=== PATIENT | female | born 1980 | race Hispanic/Latino ===

== ENCOUNTER 2016-10-10 17:31 | Emergency (ER) | payer OTHER ==
[2016-10-10 17:41] VITALS: BP 135/81; PULSE 72; RESP 19; TEMP 98.1; O2SAT 100
--- NOTE | 2016-10-10 18:29 | ED PDOC ---
Lower Extremity Pain/Injury Time Seen by Provider: 10/10/16 17:51 Chief Complaint (Nursing): Lower Extremity Problem/Injury Chief Complaint (Provider): Bilat LE swelling History Per: Patient History/Exam Limitations: no limitations Onset/Duration Of Symptoms: Days (1) Current Symptoms Are (Timing): Still Present Severity: Moderate Additional Complaint(s): Jayla Devi is a 36 y/o female presenting to the ER on 10/10/2016 with bilateral leg swelling x1 day. Patient reports swelling began after returning from her 17 hour flight from [facility]. She states she tried using Ibuprofen as well as massaging techniques but experienced no resolution of symptoms. Patient additionally felt pain in her calves, which resolved on its own two hours prior to arrival. Clinically, patient denies any pain or swelling, but her concerns prompted a visit. Of note, patient says she was experiencing chest pain prior to her trip to [facility] more than a week ago. In [facility], she reports walking frequently, hot/ humid weather, and drinking plenty of water. Past Medical History Reviewed: Historical Data, Nursing Documentation, Vital Signs Vital Signs: Last Vital Signs Temp 98.1 F 10/10/16 17:36 Pulse 72 10/10/16 17:36 Resp 19 10/10/16 17:36 BP 135/81 10/10/16 17:36 Pulse Ox 100 10/10/16 17:36 - Medical History PMH: No Chronic Diseases - Surgical History Surgical History: No Surg Hx - Family History Family History: States: Unknown Family Hx - Home Medications Home Medications: Ambulatory Orders Medication Instructions Recorded Albuterol [Proventil] 0.09 2 IH Q6 PRN #1 inhaler 03/21/14 Prednisone 3 tab-cap PO QAM #15 tab 03/21/14 Promethazine/Phenyleph/Codeine 2 tsp PO Q6 PRN #0 syr 03/21/14 [Promethazine Vc W/ Codeine 120 ml] - Allergies Allergies/Adverse Reactions: Allergies Allergy/AdvReac Type Severity Reaction Status Date / Time Penicillins Allergy RASH Verified 10/10/16 18:02 Review of Systems ROS Statement: Except As Marked, All Systems Reviewed And Found Negative Constitutional: Negative for: Fever Musculoskeletal: Positive for: Leg Pain (bilat ) Neurological: Negative for: Weakness, Numbness, Dizziness Physical Exam - Reviewed Nursing Documentation Reviewed: Yes Vital Signs Reviewed: Yes - Physical Exam Appears: Positive for: Non-toxic, No Acute Distress Head Exam: Positive for: ATRAUMATIC, NORMOCEPHALIC Skin: Positive for: Normal Color, Warm, Dry Eye Exam: Positive for: Normal appearance, EOMI, PERRL Neck: Positive for: Normal, Painless ROM, Supple Cardiovascular/Chest: Positive for: Regular Rate, Rhythm. Negative for: Murmur Respiratory: Positive for: Normal Breath Sounds. Negative for: Respiratory Distress Pulses-Dorsalis Pedis (L): 2+ Pulses-Dorsalis Pedis (R): 2+ Extremity: Positive for: Normal ROM, Swelling (bilat LE, non-pitting edema. ), Other ((-) jerica's test ). Negative for: Calf Tenderness, Deformity Neurologic/Psych: Positive for: Alert, Oriented. Negative for: Motor/Sensory Deficits - ECG O2 Sat by Pulse Oximetry: 100 (RA) Medical Decision Making Medical Decision Makin:51 Initial Impression- Dependent Edema. R/o DVT Initial Plan- * US Duplex LE * Re-evaluate 1899 US neg for DVT. Instructed to elevate legs and purchase compression stockings. Told to f/u w/ Dr. Rolle or return to ED for worsening or concerning symptoms. Documented by Justin Reis, acting as a scribe for Angus Lorenzana MD. All medical record entries made by the Scribe were at my direction and personally dictated by me. I have reviewed the chart and agree that the record accurately reflects my personal performance of the history, physical exam, medical decision making, and the department course for this patient. I have also personally directed, reviewed, and agree with the discharge instructions and disposition. Disposition - Clinical Impression Clinical Impression: Lower extremity edema - Disposition Referrals: Yasir Tatum MD [Primary Care Provider] - Disposition: Routine/Home Disposition Time: 19:30 Condition: STABLE Instructions: Leg Edema (ED)
--- NOTE | 2016-10-11 10:18 | US ---
PROCEDURE: Bilateral lower extremity venous duplex Doppler. HISTORY: long plane ride, bilateral LE swelling, r/o DVTs COMPARISON: None available. TECHNIQUE: Bilateral common femoral, superficial femoral, popliteal and posterior tibial veins were evaluated. Flow was assessed with color Doppler, compressibility, assessment of phasic flow and augmentation response. FINDINGS: COMMON FEMORAL VEIN: Right CFV: Unremarkable. Left CFV: Unremarkable. SUPERFICIAL FEMORAL VEIN: Right SFV: Unremarkable. Left SFV: Unremarkable. POPLITEAL VEIN: Right Popliteal: Unremarkable. Left Popliteal: Unremarkable. POSTERIOR TIBIAL VEIN: Right PTV: Not visualized. Right lower extremity, calf edema as the colitis Left PTV: Not visualize related to left calf edema OTHER FINDINGS: None. IMPRESSION: No evidence of deep venous thrombosis. Limitations of the current examination: Nondiagnostic assessment of posterior tibial, calf veins bilaterally appear Concordant results (preliminary interpretation) provided by [facility]. Procedure Completed: 18:38 Preliminary ([facility]) Report: Dictated and Authenticated: 19:13 Final Interpretation: 10:16. October 11, 2016.
== END 2016-10-10 19:38 | disposition home or self-care (01) ==
LOC: H.ER 17:31 → SUPCPDRO 17:31 → H.ER 19:38
DX: R60.0 Localized edema (principal); Z88.0 Allergy status to penicillin